=== PATIENT | male | born 1995 | race Asian ===

== ENCOUNTER 2017-03-09 03:05 | Emergency (ER) | payer MEDICAID ==
[~2017-03-09] VITALS: Ht 170.2 cm; Wt 65.8 kg
[2017-03-09] MEDS ORDERED: LORazepam Inj 2mg/ml 1ml ONE (03:07)
[2017-03-09] MEDS ORDERED: LORazepam Inj 2mg/ml 1ml IM ONE (03:15)
[2017-03-09] MEDS ORDERED: Haloperidol 5mg/ml Inj IM ONE (03:15)
[2017-03-09 03:22] VITALS: BP 106/21
--- NOTE | 2017-03-09 03:54 | Emergency Room Report ---
History of Present Illness General Chief Complaint: Alcohol Intoxication Source: EMS (LYUBOV REYES M.D.) Present Illness HPI 21-year-old male presents to ED for evaluation. Per EMS patient was at home intoxicated. boyfriend called 911. Patient was agitated and combative. No reported drug use. Upon arrival patient is agitated and combative and crying. Unable to provide any additional history at this time. No signs of trauma. No other aggravating relieving factors. No other associated symptoms (LYUBOV REYES M.D.) Allergies: Coded Allergies: No Known Allergies (Unverified , 03/09/17) Patient History Past Medical History: none Past Surgical History: none Pertinent Family History: none Social History: Reports: alcohol use, Denies: smoking, drug use Immunizations: UTD Reviewed Nursing Documentation: PMH: Agreed, PSxH: Agreed (LYUBOV REYES M.D.) Nursing Documentation-PMH Past Medical History: No History, Except For Hx Cardiac Problems: No - Deaf (LYUBOV REYES M.D.) Review of Systems All Other Systems: limited (LYUBOV REYES M.D.) Physical Exam Vital Signs Date Time Temp Pulse Resp B/P (MAP) Pulse Ox O2 Delivery O2 Flow Rate FiO2 03/09/17 03:01 97.9 103 18 138/80 98 Room Air Sp02 EP Interpretation: reviewed, normal General Appearance: mild distress, other - agitated/combative Head: normocephalic Eyes: bilateral eye normal inspection, bilateral eye PERRL ENT: normal ENT inspection Neck: normal inspection Respiratory: normal inspection Cardiovascular #1: normal inspection Gastrointestinal: normal inspection Rectal: deferred Genitourinary: no CVA tenderness Musculoskeletal: back normal Neurologic: other - agitated/combative Psychiatric: other - agitated/combative Skin: normal inspection Lymphatic: normal inspection (LYUBOV REYES M.D.) Medical Decision Making Diagnostic Impression: Primary Impression: Acute alcoholic intoxication Additional Impression: Alcohol abuse ER Course Please for the initial report for the initial presentation At this time the patient's boyfriend has also arrived Describes the situation with the patient had been drinking heavily last night there was some communication with him in the [employer] car Patient apparently did vomit in the car as well As the patient's symptoms did not improve patient was brought in by paramedics Patient has done well throughout the night At this time is awake The boyfriend communicates with sign language the patient does feel improved Patient has appropriate disposition safe at home No reports of any suicidal or psychiatric pathology with his presentation And stable for close followup Labs Test 03/09/17 03:35 03/09/17 04:00 Urine Opiates Screen Negative (NEGATIVE) Urine Barbiturates Screen Negative (NEGATIVE) Phencyclidine (PCP) Screen Negative (NEGATIVE) Urine Amphetamines Screen Negative (NEGATIVE) Urine Benzodiazepines Screen Negative (NEGATIVE) Urine Cocaine Screen Negative (NEGATIVE) Urine Marijuana (THC) Screen Negative (NEGATIVE) White Blood Count 5.2 K/UL (4.8-10.8) Red Blood Count 5.09 M/UL (4.70-6.10) Hemoglobin 15.7 G/DL (14.2-18.0) Hematocrit 46.0 % (42.0-52.0) Mean Corpuscular Volume 90 FL (80-99) Mean Corpuscular Hemoglobin 30.9 PG (27.0-31.0) Mean Corpuscular Hemoglobin Concent 34.2 G/DL (32.0-36.0) Red Cell Distribution Width 11.3 % (11.6-14.8) Platelet Count 267 K/UL (150-450) Mean Platelet Volume 6.9 FL (6.5-10.1) Neutrophils (%) (Auto) 61.0 % (45.0-75.0) Lymphocytes (%) (Auto) 30.6 % (20.0-45.0) Monocytes (%) (Auto) 6.3 % (1.0-10.0) Eosinophils (%) (Auto) 1.6 % (0.0-3.0) Basophils (%) (Auto) 0.5 % (0.0-2.0) Sodium Level 144 MMOL/L (136-145) Potassium Level 3.2 MMOL/L (3.5-5.1) Chloride Level 108 MMOL/L (98-107) Carbon Dioxide Level 27 MMOL/L (21-32) Anion Gap 9 mmol/L (5-15) Blood Urea Nitrogen 10 mg/dL (7-18) Creatinine 0.8 MG/DL (0.55-1.30) Estimat Glomerular Filtration Rate > 60 mL/min (>60) Glucose Level 102 MG/DL (74-106) Calcium Level 8.3 MG/DL (8.5-10.1) Total Bilirubin 0.3 MG/DL (0.2-1.0) Aspartate Amino Transf (AST/SGOT) 14 U/L (15-37) Alanine Aminotransferase (ALT/SGPT) 17 U/L (12-78) Alkaline Phosphatase 105 U/L (46-116) Total Protein 7.9 G/DL (6.4-8.2) Albumin 4.1 G/DL (3.4-5.0) Globulin 3.8 g/dL Albumin/Globulin Ratio 1.1 (1.0-2.7) Salicylates Level 0.5 ug/mL (2.8-20) Acetaminophen Level < 2 MCG/ML (10-30) Serum Alcohol 201 mg/dL (RANDALL POLLACK D.O.) Last Vital Signs Date Time Temp Pulse Resp B/P (MAP) Pulse Ox O2 Delivery O2 Flow Rate FiO2 03/09/17 03:22 97.9 99 24 106/21 96 Room Air (LYUBOV REYES M.D.) Status: improved (RANDALL POLLACK D.O.) Disposition: HOME, SELF-CARE Condition: Improved Referrals: NOT CHOSEN IPA/,REFERRING (PCP) Additional Instructions: Patient is provided with the discharge instructions notified to follow up with primary doctor in the next 2-3 days otherwise return to the er with any worsening symptoms. Please note that this report is being documented using [employer] technology. This can lead to erroneous entry secondary to incorrect interpretation by the dictating instrument. LYUBOV REYES M.D. Mar 09, 2017 03:54 RANDALL POLLACK D.O. Mar 09, 2017 08:47
[2017-03-09 04:12] LABS: BASOPHILS % (AUTO) 0.5 % (0.0-2.0); EOSINOPHILS % (AUTO) 1.6 % (0.0-3.0); LYMPHOCYTES % (AUTO) 30.6 % (20.0-45.0); MEAN CORPUSCULAR HEMOGLOBIN 30.9 PG (27.0-31.0); MEAN CORPUSCULAR HGB CONC 34.2 G/DL (32.0-36.0); MEAN CORPUSCULAR VOLUME 90 FL (80-99); MEAN PLATELET VOLUME 6.9 FL (6.5-10.1); MONOCYTES % (AUTO) 6.3 % (1.0-10.0); PLATELET COUNT 267 K/UL (150-450); RED BLOOD COUNT 5.09 M/UL (4.70-6.10); RED CELL DISTRIBUTION WIDTH 11.3 % (11.6-14.8); WHITE BLOOD COUNT 5.2 K/UL (4.8-10.8)
[2017-03-09 04:21] LABS: ANION GAP 9 mmol/L (5-15); CALCIUM 8.3 MG/DL (8.5-10.1); CARBON DIOXIDE 27 MMOL/L (21-32); CHLORIDE 108 MMOL/L (98-107); CREATININE 0.8 MG/DL (0.55-1.30); GLOMERULAR FILTRATION RATE > 60 mL/min (>60); POTASSIUM 3.2 MMOL/L (3.5-5.1); SODIUM 144 MMOL/L (136-145)
[2017-03-09 04:26] LABS: ACETAMINOPHEN < 2 MCG/ML (10-30); ALANINE AMINOTRANSFERASE 17 U/L (12-78); ALBUMIN/GLOBULIN RATIO 1.1 (1.0-2.7); ALCOHOL 201 mg/dL; ASPARTATE AMINO TRANSFERASE 14 U/L (15-37); TOTAL PROTEIN 7.9 G/DL (6.4-8.2)
[2017-03-09 08:05] VITALS: BP 105/69
[2017-03-09 08:53] VITALS: BP 105/69
== END 2017-03-09 08:54 | disposition home or self-care (01) ==
LOC: EDBD 03:05 → EMR 03:30
DX: F10.129 Alcohol abuse with intoxication, unspecified (principal)
CPT/HCPCS: 36415; 80053; 80307; 80329; 85025; 96360; 96372; 99284; J1630